=== PATIENT | male | born 1980 | race Caucasian/White ===

== ENCOUNTER 2016-12-17 17:19 | Emergency (ER) | payer OTHER ==
[~2016-12-17] VITALS: Ht 180.3 cm; Wt 112.4 kg
[~2016-12-17 17:19] MED LIST: CIPRO500 MG PO; FLAGYL500 MG PO; KLONOPIN2 MG PO; LEXAPRO10 MG PO; NEURONTIN300 MG PO; PERCOCET 5/31 TABLET PO; PROZAC20 MG PO; PROZAC40 MG PO; ZITHROMAX Z-PA250 MG PO; ZOCOR20 MG PO
[2016-12-17] MEDS ORDERED: NORCO 7.5/321 TABLET PO (20:06)
[2016-12-17] MEDS ORDERED: VALIUM5 MG PO (20:06)
[2016-12-17] MEDS ORDERED: MOTRIN800 MG PO (20:06)
[2016-12-17 20:44] VITALS: BP 151/93
== END 2016-12-17 20:44 | disposition home or self-care (01) ==
LOC: EME 17:19
DX: M54.12 Radiculopathy, cervical region (principal); M62.838 Other muscle spasm
CPT/HCPCS: 72040; 99281; 99284; J1100; J3010

== ENCOUNTER 2016-12-26 05:56 | Emergency (ER) | payer OTHER ==
[~2016-12-26] VITALS: Ht 182.9 cm; Wt 111.8 kg
[~2016-12-26 05:56] MED LIST changes: +MOTRIN800 MG PO; +NORCO 7.5/321 TABLET PO; +VALIUM5 MG PO
[2016-12-26] MEDS ORDERED: PREDNISONE20 MG PO (07:12)
[2016-12-26] MEDS ORDERED: LIDODERM 5% P1 PATCH TD (07:12)
[2016-12-26] MEDS ORDERED: FLEXERIL10 MG PO (07:12)
[2016-12-26 08:23] VITALS: BP 122/76
== END 2016-12-26 08:24 | disposition home or self-care (01) ==
LOC: EME 05:56
DX: M54.12 Radiculopathy, cervical region (principal); M62.830 Muscle spasm of back; G89.29 Other chronic pain; Z87.891 Personal history of nicotine dependence
CPT/HCPCS: 99281; 99284; J7512

== ENCOUNTER 2017-01-29 09:59 | Emergency (ER) | payer OTHER ==
[~2017-01-29] VITALS: Ht 180.3 cm; Wt 115.3 kg
[~2017-01-29 09:59] MED LIST changes: +FLEXERIL10 MG PO; +LIDODERM 5% P1 PATCH TD; +PREDNISONE20 MG PO
[2017-01-29] MEDS ORDERED: FLUOXETINE HCL20 MG PO (11:23)
[2017-01-29] MEDS ORDERED: NAPROSYN500 MG PO (11:35)
[2017-01-29 11:51] VITALS: BP 139/97
== END 2017-01-29 11:51 | disposition home or self-care (01) ==
LOC: EME 09:59
DX: M25.562 Pain in left knee (principal); M25.462 Effusion, left knee; E78.5 Hyperlipidemia, unspecified; F32.9 Major depressive disorder, single episode, unspecified; Z87.891 Personal history of nicotine dependence
CPT/HCPCS: 73564; 93971; 99281; 99284; J1885

== ENCOUNTER 2017-07-29 11:58 | Emergency (ER) | payer OTHER ==
[~2017-07-29] VITALS: Ht 182.9 cm; Wt 111.7 kg
[~2017-07-29 11:58] MED LIST changes: +FLUOXETINE HCL20 MG PO; +NAPROSYN500 MG PO
[2017-07-29 12:34] LABS: HEMATOCRIT 39.9 % (38.0-50.0); HEMOGLOBIN 14.1 G/DL (12.5-16.6); MCH 32.2 PG (29.0-34.0); MCHC 35.3 G/DL (30.0-36.0); MCV 91.1 FL (86-99); RBC DIS.WIDTH-CV 12.4 % (11.8-14.6); RBC DIS.WIDTH-SD 41.1 % (39-53); RED BLOOD COUNT 4.38 M/uL (4.00-5.50); WHITE BLOOD COUNT 4.9 K/uL (4.1-10.2)
[2017-07-29 12:45] LABS: CHLORIDE 107 mEq/L (99-109); POTASSIUM 4.7 mEq/L (3.7-5.4); SODIUM 141 mEq/L (136-147)
[2017-07-29 12:47] LABS: GLUCOSE 101 mg/dL (70-99)
[2017-07-29 12:51] LABS: CREATININE 0.8 mg/dL (0.6-1.3); GFR ESTIMATE (CALCULATED) > 59 mL/min/ (58.99-99999)
[2017-07-29 12:52] LABS: UREA NITROGEN (BUN) 15 mg/dL (9-23)
[2017-07-29 12:57] LABS: TROP-I INTERPRETATION NEGATIVE; TROPONIN-I < 0.01 ng/mL (0.0-0.30)
[2017-07-29 13:16] LABS: PLAT.SUFFICIENCY ADEQUATE; PLATELET COUNT 153 K/uL (156-360)
[2017-07-29 16:19] LABS: TROP-I INTERPRETATION NEGATIVE; TROPONIN-I < 0.01 ng/mL (0.0-0.30)
[2017-07-29] MEDS ORDERED: MULTI-VITAMIN1 EAC4 PO (17:40)
[2017-07-29] MEDS ORDERED: PERCOCET 10/1 TABLET PO (17:40)
[2017-07-29] MEDS ORDERED: MELATONIN10 M1 PO (17:40)
[2017-07-29] MEDS ORDERED: IBUPROFEN PM S1 EACH PO (17:40)
[2017-07-29] MEDS ORDERED: FLEXERIL10 MG PO (19:32)
[2017-07-29] MEDS ORDERED: NAPROSYN500 MG PO (19:32)
[2017-07-29 19:53] VITALS: BP 134/80
== END 2017-07-29 19:54 | disposition home or self-care (01) ==
LOC: EME 11:58
PROVIDERS: Nurse Practitioner Family
DX: R07.89 Other chest pain (principal); R42 Dizziness and giddiness; E78.5 Hyperlipidemia, unspecified; F32.9 Major depressive disorder, single episode, unspecified; Z87.891 Personal history of nicotine dependence
CPT/HCPCS: 71046; 71275; 80048; 84484; 85027; 93005; 99281; 99285; J2405; J3010; J7030

== ENCOUNTER 2017-08-03 08:17 | Emergency (ER) | payer OTHER ==
[~2017-08-03] VITALS: Ht 175.3 cm; Wt 112.4 kg
[~2017-08-03 08:17] MED LIST changes: +IBUPROFEN PM S1 EACH PO; +MELATONIN10 M1 PO; +MULTI-VITAMIN1 EAC4 PO; +PERCOCET 10/1 TABLET PO
[2017-08-03 09:28] LABS: HEMATOCRIT 40.2 % (38.0-50.0); HEMOGLOBIN 14.2 G/DL (12.5-16.6); MCH 32.1 PG (29.0-34.0); MCHC 35.3 G/DL (30.0-36.0); PLATELET COUNT 144 K/uL (156-360); RBC DIS.WIDTH-CV 12.5 % (11.8-14.6); RBC DIS.WIDTH-SD 41.3 % (39-53); RED BLOOD COUNT 4.42 M/uL (4.00-5.50); WHITE BLOOD COUNT 5.5 K/uL (4.1-10.2)
[2017-08-03 09:39] LABS: CHLORIDE 102 mEq/L (99-109); SODIUM 140 mEq/L (136-147)
[2017-08-03 09:41] LABS: GLUCOSE 98 mg/dL (70-99)
[2017-08-03 09:45] LABS: CREATININE 0.8 mg/dL (0.6-1.3); GFR ESTIMATE (CALCULATED) > 59 mL/min/ (58.99-99999)
[2017-08-03 09:46] LABS: UREA NITROGEN (BUN) 19 mg/dL (9-23)
[2017-08-03 09:49] LABS: TROP-I INTERPRETATION NEGATIVE; TROPONIN-I < 0.01 ng/mL (0.0-0.30)
[2017-08-03] MEDS ORDERED: TRAMADOL HCL50 MG PO (12:03)
[2017-08-03] MEDS ORDERED: MOTRIN400 MG PO (12:03)
[2017-08-03 12:29] VITALS: BP 144/87
== END 2017-08-03 12:32 | disposition home or self-care (01) ==
LOC: EME 08:17
DX: R07.89 Other chest pain (principal); E78.5 Hyperlipidemia, unspecified; Z87.891 Personal history of nicotine dependence; F32.9 Major depressive disorder, single episode, unspecified
CPT/HCPCS: 71046; 80048; 84484; 85027; 93005; 99281; 99284; J1885

== ENCOUNTER 2017-10-21 23:27 | Emergency (ER) | payer OTHER ==
[~2017-10-21] VITALS: Ht 182.9 cm; Wt 114.9 kg
[~2017-10-21 23:27] MED LIST changes: +MOTRIN400 MG PO; +TRAMADOL HCL50 MG PO
[2017-10-21] MEDS ORDERED: PROZAC20 MG PO (23:49)
[2017-10-22 00:13] VITALS: BP 139/91
== END 2017-10-22 00:14 | disposition home or self-care (01) ==
LOC: EME 23:27
DX: F32.9 Major depressive disorder, single episode, unspecified (principal); Z76.0 Encounter for issue of repeat prescription; R11.0 Nausea; R51 Headache; Z87.891 Personal history of nicotine dependence
CPT/HCPCS: 99281; 99283

== ENCOUNTER 2017-12-06 11:16 | Emergency (ER) | payer OTHER ==
[~2017-12-06] VITALS: Ht 180.3 cm; Wt 113.1 kg
[2017-12-06 11:45] LABS: HEMOGLOBIN 13.9 G/DL (12.5-16.6); MCHC 34.8 G/DL (30.0-36.0); MCV 92.2 FL (86-99); RBC DIS.WIDTH-CV 12.4 % (11.8-14.6); RBC DIS.WIDTH-SD 41.8 % (39-53); RED BLOOD COUNT 4.34 M/uL (4.00-5.50); WHITE BLOOD COUNT 5.1 K/uL (4.1-10.2)
[2017-12-06 12:05] LABS: ALBUMIN 4.6 G/DL (3.2-4.8); CHLORIDE 102 MEQ/L (99-109); SODIUM 139 MEQ/L (136-147); TOTAL BILIRUBIN 0.6 MG/DL (0.0-1.0)
[2017-12-06 12:11] LABS: ALKALINE PHOSPHATASE 36 IU/L (3-129); ALT (GPT) 52 IU/L (3-49); AST (GOT) 31 IU/L (2-34); CREATININE 0.6 MG/DL (0.6-1.3); GFR ESTIMATE (CALCULATED) > 59 mL/min/ (58.99-99999); GLUCOSE 104 mg/dL (70-99); TOTAL PROTEIN 6.9 G/DL (6.4-8.3); UREA NITROGEN (BUN) 11 mg/dL (9-23)
[2017-12-06 12:22] LABS: PLAT.SUFFICIENCY DECREASED; PLATELET COUNT 107 K/uL (156-360)
[2017-12-06 14:08] LABS: LIPASE 4 U/L (1.0-51.0)
[2017-12-06 17:28] LABS: APPEARANCE CLEAR ((CLEAR)); BILIRUBIN NEGATIVE; BLOOD NEGATIVE; COLOR YELLOW ((YELLOW)); GLUCOSE (STRIP) NEGATIVE; KETONES NEGATIVE; LEUKOCYTES NEGATIVE; NITRITE NEGATIVE; PROTEIN (STRIP) NEGATIVE; SPECIFIC GRAVITY 1.053 (1.000-1.030); UCUL ADDED? NO; UROBILINOGEN 0.2 MG/DL (0.2-1.0)
[2017-12-06] MEDS ORDERED: ZOFRAN ODT4 MG PO (17:59)
[2017-12-06 18:45] VITALS: BP 138/93
== END 2017-12-06 18:47 | disposition home or self-care (01) ==
LOC: EME 11:16 → RME 11:16
DX: R10.9 Unspecified abdominal pain (principal); Z98.890 Other specified postprocedural states; E78.5 Hyperlipidemia, unspecified; Z87.891 Personal history of nicotine dependence; F32.9 Major depressive disorder, single episode, unspecified
CPT/HCPCS: 74177; 80053; 81003; 83690; 85027; 93005; 99281; 99285; J2270; J2405; J7030